=== PATIENT | female | born 2000 | race African-American/Black ===

== ENCOUNTER 2022-02-21 12:58 | Inpatient (IN) | payer OTHER, MEDICAID ==
[2022-02-21] MEDS ORDERED: LIDOCAINE (2%) 20 MG/1 ML VIAL 20 ML MDV INFILTRATI ONE (17:36)
[2022-02-21] MEDS ORDERED: OXYTOCIN 10 UNIT/1 ML INJ IM PRN (17:36)
[2022-02-21] MEDS ORDERED: ePHEDrine SULFATE 50 MG/1 ML INJ IV PRN (17:36)
[2022-02-21] MEDS ORDERED: CARBOPROST TROMETHAMINE 250 MCG/1 ML INJ IM PRN (17:36)
[2022-02-21] MEDS ORDERED: TERBUTALINE 1 MG/1 ML INJ SUB-Q PRN (17:36)
[2022-02-21] MEDS ORDERED: LOPERAMIDE 2 MG CAP PO PRN (17:36)
[2022-02-21] MEDS ORDERED: MINERAL OIL 30 ML ORAL LIQD PO PRN (17:36)
[2022-02-21] MEDS ORDERED: miSOPROStol 200 MCG TAB PR PRN (17:36)
[2022-02-21] MEDS ORDERED: hydrALAZINE 20 MG/1 ML INJ IV PRN (17:39)
[2022-02-21] MEDS ORDERED: DINOPROSTONE 10 MG VAG SUPP VG ONE (17:39)
[2022-02-21] MEDS ORDERED: AMPICILLIN/NS 2 GM/100 ML 2 GM/100 ML BAG IV ONE ×2 (17:39→21:27)
[2022-02-21] MEDS ORDERED: ONDANSETRON 4 MG/2 ML INJ IV PRN (17:39)
[2022-02-21] MEDS ORDERED: NALOXONE 0.4 MG/1 ML INJ IV PRN (17:39)
[2022-02-21] MEDS ORDERED: ACETAMINOPHEN 325 MG TAB PO PRN (17:39)
[2022-02-21] MEDS ORDERED: CALCIUM GLUCONATE 1000 MG/10 ML INJ IV PRN (17:39)
[2022-02-21] MEDS ORDERED: LACTATED RINGERS 1,000 ML IV SCH ×2 (17:45)
[2022-02-21] MEDS ORDERED: OXYTOCIN DRIP 30 UNITS/500 ML BAG IV SCH ×2 (18:00)
[2022-02-21 19:37] LABS: Hematocrit 35.9 % (30.3-42.9); Hemoglobin 12.2 gm/dl (10.1-14.3); Mean Corpuscular HGB Conc 34 % (30-34); Mean Corpuscular Volume 88 fl (79-97); Platelet Count 244 K/mm3 (140-440); Red Blood Count 4.06 M/mm3 (3.65-5.03); Red Cell Distribution Width 14.2 % (13.2-15.2)
[2022-02-21 19:59] LABS: Alanine Aminotransferase 10 units/L (7-56)
[2022-02-21 20:07] LABS: Hepatitis C Virus Antibody Non-Reactive (NonReactive)
--- NOTE | 2022-02-21 21:08 | History and Physical Report ---
History of Present Illness Date of admission: 02/21/22 17:37 Chief complaint: contractions History of present illness: Pt is a 21 year old female primigravida ANDREEA 03/07/22 at 38w0d who intially presented complaining of contractions. Her cervix was found to be closed, but multiple blood pressures were noted to be elevated. Bedside ultrasound confirms a term , and reveals oligohydramnios with MADELINE 4.2 cm. She reports care at [facility] until insurance lapse, but records are unavailable for review. She reports being GBS positive. Past History Past Medical History: no pertinent history Past Surgical History: appendectomy Social history: no significant social history, - Obstetrical History Expected Date of Delivery: 03/07/22 Actual Gestation: 38 Week(s) 0 Day(s) : 1 Medications and Allergies Allergies Allergy/AdvReac Type Severity Reaction Status Date / Time No Known Allergies Allergy Unverified 01/22/15 05:40 Home Medications Medication Instructions Recorded Confirmed Last Taken Type Ondansetron [Zofran Odt] 4 mg PO Q4H PRN #10 tab.rapdis 01/22/15 Unknown Rx Active Meds: Active Medications Acetaminophen (Acetaminophen 325 Mg Tab) 650 mg PO Q4H PRN PRN Reason: Pain, Mild (1-3) Butorphanol Tartrate (Butorphanol 2 Mg/1 Ml Inj) 1 mg IV Q2H PRN PRN Reason: Pain, Moderate(4-6) LABOR PAIN Calcium Gluconate (Calcium Gluconate 1000 Mg/10 Ml Inj) 1,000 mg IV ONCE PRN PRN Reason: Hypermagnesmia Carboprost Tromethamine (Carboprost Tromethamine 250 Mcg/1 Ml Inj) 250 mcg IM ONCE PRN PRN Reason: Uterine Bleeding Ephedrine Sulfate (Ephedrine Sulfate 50 Mg/1 Ml Inj) 10 mg IV Q2M PRN PRN Reason: Hypotension Fentanyl (Fentanyl 100 Mcg/2 Ml Inj) 100 mcg IV Q2H PRN PRN Reason: Pain,Severe (7-10) LABOR PAIN Hydralazine HCl (Hydralazine 20 Mg/1 Ml Inj) 5 mg IV Q30MIN PRN PRN Reason: Hypertension Lactated Ringer's (Lactated Ringers) 1,000 mls @ 125 mls/hr IV DIRECT MARY ANN Oxytocin/Sodium Chloride (Pitocin/Ns 30 Unit/500ml) 30 units in 500 mls @ 2 mls/hr IV TITR MARY ANN; Protocol Lactated Ringer's (Lactated Ringers) 1,000 mls @ 125 mls/hr IV DIRECT MARY ANN Oxytocin/Sodium Chloride (Pitocin/Ns 30 Unit/500ml) 30 units in 500 mls @ 40 mls/hr IV TITR MARY ANN; Protocol Ampicillin Sodium (Ampicillin/Ns 1 Gm/50 Ml) 1 gm in 50 mls @ 100 mls/hr IV Q4H MARY ANN; Protocol Labetalol HCl (Labetalol 20 Mg/4 Ml Inj) 20 mg IV ONCE PRN PRN Reason: Hypertension Loperamide HCl (Loperamide 2 Mg Cap) 2 mg PO ONCE PRN PRN Reason: give with Hemabate Mineral Oil (Mineral Oil 30 Ml Oral Liqd) 30 ml PO QHS PRN PRN Reason: Constipation Misoprostol (Misoprostol 200 Mcg Tab) 800 mcg MS ONCE PRN PRN Reason: Uterine Bleeding Naloxone HCl (Naloxone 0.4 Mg/1 Ml Inj) 0.1 mg IV Q2MIN PRN PRN Reason: Res Rate </= 8 or 02 SAT < 92% Ondansetron HCl (Ondansetron 4 Mg/2 Ml Inj) 4 mg IV Q8H PRN PRN Reason: Nausea And Vomiting Oxytocin (Oxytocin 10 Unit/1 Ml Inj) 10 unit IM ONCE PRN PRN Reason: Uterine Bleeding Terbutaline Sulfate (Terbutaline 1 Mg/1 Ml Inj) 0.25 mg SUB-Q ONCE PRN PRN Reason: Hyperstimulation/Hypertonicity Review of Systems All systems: negative - Vital Signs Vital signs: Vital Signs Temp Pulse Resp BP Pulse Ox 98.3 F 103 H 18 147/99 98 02/21/22 13:22 02/21/22 13:22 02/21/22 13:22 02/21/22 13:22 02/21/22 13:22 Temp Pulse Resp BP Pulse Ox 98.9 F 103 H 18 142/95 94 02/21/22 19:59 02/21/22 21:02 02/21/22 13:22 02/21/22 21:01 02/21/22 21:02 - Physical Exam Breasts: Positive: deferred Abdomen: Positive: soft (gravid ) Uterus: Positive: enlarged (gravid ) - Obstetrical FHR: auscultation normal Uterine Contraction Monitor Mode: External Cervical Dilatation: 0 (per RN ) Uterine Contraction Pattern: Irregular Uterine Tone Measurement Phase: Resting Uterine Contraction Intensity: Mild Results Result Diagrams: 02/21/22 19:26 02/21/22 19:26 Abnormal lab results 02/21/22 Range/Units 19:26 Creatinine 0.5 L (0.6-1.2) mg/dL All other labs normal. Ultrasound: image reviewed Assessment and Plan A: IUP at 38w0d Gestational Hypertension Oligohydramnios Unfavorable Cervix Limited Care GBS positive per pt P: Admit to labor and delivery panel, PIH panel Cervidil for cervical ripening Closely monitor maternal and status
[2022-02-22] MEDS: fentaNYL 100 MCG/2 ML INJ IV PRN ×2 (02:39→09:31)
[2022-02-22] MEDS: BUTORPHANOL 2 MG/1 ML INJ IV PRN ×2 (07:33→08:55)
--- NOTE | 2022-02-22 07:50 | Ultrasound Report ---
ULTRASOUND OBSTETRIC COMPLETE INDICATION / CLINICAL INFORMATION: elevated bp. Clinical Gestational Age (GA) in weeks.days: 37.6 TECHNIQUE: Transabdominal. COMPARISON: None available. FINDINGS: NUMBER: Single PRESENTATION: cephalic PLACENTA: anterior and free of the os. MATERNAL ADNEXA: No significant abnormality. AMNIOTIC FLUID VOLUME: decreased AMNIOTIC FLUID INDEX (MADELINE) in cm (if measured): 4.2 ANATOMY: anatomical survey was not performed. MEASUREMENTS: - Biparietal Diameter = 9.3 cm = 37.6 weeks.days - Head Circumference = 33.2 cm = 37.6 weeks.days - Abdominal Circumference = 33.7 cm = 37.4 weeks.days - Femur Length = 7.5 cm = 38.2 weeks.days - Estimated Weight (in grams, if calculated): 3325 - Heart Rate (beats per minute): 161 ADDITIONAL FINDINGS: None. PERCENTILE ESTIMATED WEIGHT (if calculated): 59 AVERAGE ULTRASOUND AGE (AUA) in weeks.days = 38.0 IMPRESSION: 1. Single intrauterine with AUA of 38.0 weeks.days 2. Mild oligohydramnios with MADELINE measuring 4.2 cm. Signer Name: Golden Chirinos Jr, MD Signed: 02/22/2022 7:45 AM Workstation Name: [id number]
--- NOTE | 2022-02-22 08:34 | Progress Note ---
Assessment and Plan - Patient Problems (1) Gestational hypertension Current Visit: Yes Status: Acute Plan to address problem: Continue induction as planned (2) Oligohydramnios Current Visit: Yes Status: Acute Subjective - Subjective Date of service: 02/22/22 Interval history: 21-year-old at 38+1 weeks who was admitted for elevated blood pressures and findings of oligohydramnios. The patient is currently receiving low-dose Pitocin and and her cervix is 1 cm. Patient reports: no new complaints Objective - Vital Signs Vital Signs: Vital Signs - 12hr 02/21/22 02/21/22 02/21/22 20:35 20:40 20:41 Temperature Pulse Rate 80 74 75 Blood Pressure 158/97 Blood Pressure [Right] O2 Sat by Pulse 97 97 Oximetry O2 Sat by Pulse Oximetry [ Bilateral Throughout] 02/21/22 02/21/22 02/21/22 20:45 20:52 20:57 Temperature Pulse Rate 85 99 H 85 Blood Pressure Blood Pressure [Right] O2 Sat by Pulse 97 96 98 Oximetry O2 Sat by Pulse Oximetry [ Bilateral Throughout] 02/21/22 02/21/22 02/21/22 21:01 21:02 21:07 Temperature Pulse Rate 75 103 H 73 Blood Pressure 142/95 Blood Pressure [Right] O2 Sat by Pulse 94 97 Oximetry O2 Sat by Pulse Oximetry [ Bilateral Throughout] 02/21/22 02/21/22 02/21/22 21:12 21:17 21:21 Temperature Pulse Rate 74 84 71 Blood Pressure 135/93 Blood Pressure [Right] O2 Sat by Pulse 96 98 Oximetry O2 Sat by Pulse Oximetry [ Bilateral Throughout] 02/21/22 02/21/22 02/21/22 21:22 21:27 21:32 Temperature Pulse Rate 83 91 H 92 H Blood Pressure Blood Pressure [Right] O2 Sat by Pulse 97 97 98 Oximetry O2 Sat by Pulse Oximetry [ Bilateral Throughout] 02/21/22 02/21/22 02/21/22 21:37 21:41 21:42 Temperature Pulse Rate 95 H 81 84 Blood Pressure 141/82 Blood Pressure [Right] O2 Sat by Pulse 98 98 Oximetry O2 Sat by Pulse Oximetry [ Bilateral Throughout] 02/21/22 02/21/22 02/21/22 21:47 21:52 21:57 Temperature Pulse Rate 84 86 78 Blood Pressure Blood Pressure [Right] O2 Sat by Pulse 98 97 98 Oximetry O2 Sat by Pulse Oximetry [ Bilateral Throughout] 02/21/22 02/21/22 02/21/22 22:01 22:02 22:07 Temperature Pulse Rate 78 79 79 Blood Pressure 133/87 Blood Pressure [Right] O2 Sat by Pulse 97 97 Oximetry O2 Sat by Pulse Oximetry [ Bilateral Throughout] 02/21/22 02/21/22 02/21/22 22:12 22:17 22:21 Temperature Pulse Rate 79 82 77 Blood Pressure 135/88 Blood Pressure [Right] O2 Sat by Pulse 97 97 Oximetry O2 Sat by Pulse Oximetry [ Bilateral Throughout] 02/21/22 02/21/22 02/21/22 22:22 22:34 22:39 Temperature Pulse Rate 80 85 88 Blood Pressure Blood Pressure [Right] O2 Sat by Pulse 97 98 96 Oximetry O2 Sat by Pulse Oximetry [ Bilateral Throughout] 02/21/22 02/21/22 02/21/22 22:42 22:44 22:49 Temperature Pulse Rate 92 H 80 75 Blood Pressure 160/95 147/90 Blood Pressure [Right] O2 Sat by Pulse 98 98 Oximetry O2 Sat by Pulse Oximetry [ Bilateral Throughout] 02/21/22 02/21/22 02/21/22 22:54 22:59 23:01 Temperature Pulse Rate 76 77 78 Blood Pressure 136/87 Blood Pressure [Right] O2 Sat by Pulse 98 97 Oximetry O2 Sat by Pulse Oximetry [ Bilateral Throughout] 02/21/22 02/21/22 02/21/22 23:04 23:09 23:14 Temperature Pulse Rate 78 78 79 Blood Pressure Blood Pressure [Right] O2 Sat by Pulse 98 97 97 Oximetry O2 Sat by Pulse Oximetry [ Bilateral Throughout] 02/21/22 02/21/22 02/21/22 23:19 23:21 23:24 Temperature Pulse Rate 79 71 86 Blood Pressure 142/95 Blood Pressure [Right] O2 Sat by Pulse 98 97 Oximetry O2 Sat by Pulse Oximetry [ Bilateral Throughout] 02/21/22 02/21/22 02/21/22 23:29 23:34 23:39 Temperature Pulse Rate 76 78 89 Blood Pressure Blood Pressure [Right] O2 Sat by Pulse 97 97 97 Oximetry O2 Sat by Pulse Oximetry [ Bilateral Throughout] 08/14/22 08/14/22 08/14/22 23:42 23:44 23:49 Temperature Pulse Rate 75 82 83 Blood Pressure 145/94 Blood Pressure [Right] O2 Sat by Pulse 98 98 Oximetry O2 Sat by Pulse Oximetry [ Bilateral Throughout] 02/21/22 02/21/22 02/22/22 23:54 23:59 00:02 Temperature Pulse Rate 93 H 83 82 Blood Pressure 165/102 Blood Pressure [Right] O2 Sat by Pulse 97 97 Oximetry O2 Sat by Pulse Oximetry [ Bilateral Throughout] 02/22/22 02/22/22 02/22/22 00:04 00:06 00:08 Temperature 98.7 F Pulse Rate 84 77 80 Blood Pressure 153/90 Blood Pressure 153/90 [Right] O2 Sat by Pulse 98 Oximetry O2 Sat by Pulse Oximetry [ Bilateral Throughout] 02/22/22 02/22/22 02/22/22 00:09 00:14 00:19 Temperature Pulse Rate 82 88 89 Blood Pressure Blood Pressure [Right] O2 Sat by Pulse 96 98 98 Oximetry O2 Sat by Pulse Oximetry [ Bilateral Throughout] 02/22/22 02/22/22 02/22/22 00:22 00:24 00:29 Temperature Pulse Rate 77 81 91 H Blood Pressure 156/94 Blood Pressure [Right] O2 Sat by Pulse 98 98 Oximetry O2 Sat by Pulse Oximetry [ Bilateral Throughout] 02/22/22 02/22/22 02/22/22 00:34 00:39 00:41 Temperature Pulse Rate 88 85 78 Blood Pressure 153/92 Blood Pressure [Right] O2 Sat by Pulse 98 97 Oximetry O2 Sat by Pulse Oximetry [ Bilateral Throughout] 02/22/22 02/22/22 02/22/22 00:50 00:55 01:00 Temperature Pulse Rate 90 85 89 Blood Pressure Blood Pressure [Right] O2 Sat by Pulse 98 97 97 Oximetry O2 Sat by Pulse Oximetry [ Bilateral Throughout] 02/22/22 02/22/22 02/22/22 01:02 01:05 01:10 Temperature Pulse Rate 75 79 87 Blood Pressure 142/81 Blood Pressure [Right] O2 Sat by Pulse 98 98 Oximetry O2 Sat by Pulse Oximetry [ Bilateral Throughout] 02/22/22 02/22/22 02/22/22 01:15 01:20 01:21 Temperature Pulse Rate 82 85 80 Blood Pressure 166/98 Blood Pressure [Right] O2 Sat by Pulse 98 98 Oximetry O2 Sat by Pulse Oximetry [ Bilateral Throughout] 02/22/22 02/22/22 02/22/22 01:25 01:30 01:37 Temperature Pulse Rate 80 74 84 Blood Pressure Blood Pressure [Right] O2 Sat by Pulse 98 97 97 Oximetry O2 Sat by Pulse Oximetry [ Bilateral Throughout] 02/22/22 02/22/22 02/22/22 01:42 01:47 01:52 Temperature Pulse Rate 87 83 79 Blood Pressure 157/102 Blood Pressure [Right] O2 Sat by Pulse 98 98 98 Oximetry O2 Sat by Pulse Oximetry [ Bilateral Throughout] 02/22/22 02/22/22 02/22/22 01:59 02:01 02:04 Temperature Pulse Rate 57 L 84 77 Blood Pressure 163/97 Blood Pressure [Right] O2 Sat by Pulse 98 97 Oximetry O2 Sat by Pulse Oximetry [ Bilateral Throughout] 02/22/22 02/22/22 02/22/22 02:09 02:15 02:19 Temperature Pulse Rate 83 83 71 Blood Pressure 153/94 Blood Pressure [Right] O2 Sat by Pulse 98 97 Oximetry O2 Sat by Pulse Oximetry [ Bilateral Throughout] 02/22/22 02/22/22 02/22/22 02:20 02:21 02:25 Temperature Pulse Rate 72 77 74 Blood Pressure 143/90 Blood Pressure [Right] O2 Sat by Pulse 98 97 Oximetry O2 Sat by Pulse Oximetry [ Bilateral Throughout] 02/22/22 02/22/22 02/22/22 02:35 02:40 02:45 Temperature Pulse Rate 82 81 90 Blood Pressure Blood Pressure [Right] O2 Sat by Pulse 98 98 96 Oximetry O2 Sat by Pulse Oximetry [ Bilateral Throughout] 02/22/22 02/22/22 02/22/22 02:46 02:50 02:55 Temperature Pulse Rate 77 78 82 Blood Pressure Blood Pressure [Right] O2 Sat by Pulse 94 96 96 Oximetry O2 Sat by Pulse Oximetry [ Bilateral Throughout] 02/22/22 02/22/22 02/22/22 03:00 03:02 03:05 Temperature Pulse Rate 80 79 82 Blood Pressure 151/90 Blood Pressure [Right] O2 Sat by Pulse 96 96 Oximetry O2 Sat by Pulse Oximetry [ Bilateral Throughout] 02/22/22 02/22/22 02/22/22 03:10 03:15 03:20 Temperature Pulse Rate 77 75 81 Blood Pressure Blood Pressure [Right] O2 Sat by Pulse 96 97 98 Oximetry O2 Sat by Pulse Oximetry [ Bilateral Throughout] 02/22/22 02/22/22 02/22/22 03:21 03:25 03:36 Temperature Pulse Rate 86 90 109 H Blood Pressure 159/99 Blood Pressure [Right] O2 Sat by Pulse 97 97 Oximetry O2 Sat by Pulse Oximetry [ Bilateral Throughout] 02/22/22 02/22/22 02/22/22 03:41 03:42 03:46 Temperature Pulse Rate 76 76 72 Blood Pressure 163/102 Blood Pressure [Right] O2 Sat by Pulse 97 97 Oximetry O2 Sat by Pulse Oximetry [ Bilateral Throughout] 02/22/22 02/22/22 02/22/22 03:51 03:56 04:01 Temperature Pulse Rate 74 75 76 Blood Pressure 141/95 Blood Pressure [Right] O2 Sat by Pulse 97 97 97 Oximetry O2 Sat by Pulse Oximetry [ Bilateral Throughout] 02/22/22 02/22/22 02/22/22 04:06 04:11 04:16 Temperature Pulse Rate 76 84 76 Blood Pressure Blood Pressure [Right] O2 Sat by Pulse 97 97 97 Oximetry O2 Sat by Pulse Oximetry [ Bilateral Throughout] 02/22/22 02/22/22 02/22/22 04:21 04:26 04:31 Temperature Pulse Rate 90 85 78 Blood Pressure 139/81 Blood Pressure [Right] O2 Sat by Pulse 97 97 97 Oximetry O2 Sat by Pulse Oximetry [ Bilateral Throughout] 02/22/22 02/22/22 02/22/22 04:36 04:41 04:42 Temperature Pulse Rate 77 81 79 Blood Pressure 157/83 Blood Pressure [Right] O2 Sat by Pulse 97 98 Oximetry O2 Sat by Pulse Oximetry [ Bilateral Throughout] 02/22/22 02/22/22 02/22/22 04:50 04:55 05:00 Temperature Pulse Rate 106 H 76 75 Blood Pressure Blood Pressure [Right] O2 Sat by Pulse 98 97 98 Oximetry O2 Sat by Pulse Oximetry [ Bilateral Throughout] 02/22/22 02/22/22 02/22/22 05:01 05:05 05:10 Temperature Pulse Rate 80 83 73 Blood Pressure 143/82 Blood Pressure [Right] O2 Sat by Pulse 97 97 Oximetry O2 Sat by Pulse Oximetry [ Bilateral Throughout] 02/22/22 02/22/22 02/22/22 05:15 05:20 05:21 Temperature Pulse Rate 69 69 75 Blood Pressure 139/81 Blood Pressure [Right] O2 Sat by Pulse 97 97 Oximetry O2 Sat by Pulse Oximetry [ Bilateral Throughout] 02/22/22 02/22/22 02/22/22 05:25 05:30 05:35 Temperature Pulse Rate 84 70 72 Blood Pressure Blood Pressure [Right] O2 Sat by Pulse 97 97 97 Oximetry O2 Sat by Pulse Oximetry [ Bilateral Throughout] 02/22/22 02/22/22 02/22/22 05:40 05:41 05:45 Temperature Pulse Rate 66 77 71 Blood Pressure 143/86 Blood Pressure [Right] O2 Sat by Pulse 96 96 Oximetry O2 Sat by Pulse Oximetry [ Bilateral Throughout] 02/22/22 02/22/22 02/22/22 05:50 05:55 06:00 Temperature Pulse Rate 72 80 69 Blood Pressure Blood Pressure [Right] O2 Sat by Pulse 96 97 96 Oximetry O2 Sat by Pulse Oximetry [ Bilateral Throughout] 02/22/22 02/22/22 02/22/22 06:02 06:05 06:10 Temperature Pulse Rate 74 70 71 Blood Pressure 155/92 Blood Pressure [Right] O2 Sat by Pulse 96 96 Oximetry O2 Sat by Pulse Oximetry [ Bilateral Throughout] 02/22/22 02/22/22 02/22/22 06:15 06:16 06:20 Temperature 98.3 F Pulse Rate 79 79 82 Blood Pressure 152/95 Blood Pressure 152/95 [Right] O2 Sat by Pulse 96 97 Oximetry O2 Sat by Pulse Oximetry [ Bilateral Throughout] 02/22/22 02/22/22 02/22/22 06:22 06:25 06:30 Temperature Pulse Rate 71 69 71 Blood Pressure 153/84 Blood Pressure [Right] O2 Sat by Pulse 95 96 Oximetry O2 Sat by Pulse Oximetry [ Bilateral Throughout] 02/22/22 02/22/22 02/22/22 06:35 06:40 06:41 Temperature Pulse Rate 71 71 72 Blood Pressure 152/84 Blood Pressure [Right] O2 Sat by Pulse 96 95 Oximetry O2 Sat by Pulse Oximetry [ Bilateral Throughout] 02/22/22 02/22/22 02/22/22 06:48 06:53 06:58 Temperature Pulse Rate 94 H 82 84 Blood Pressure Blood Pressure [Right] O2 Sat by Pulse 98 97 97 Oximetry O2 Sat by Pulse Oximetry [ Bilateral Throughout] 02/22/22 02/22/22 02/22/22 07:01 07:03 07:06 Temperature Pulse Rate 73 73 75 Blood Pressure 162/88 145/83 Blood Pressure [Right] O2 Sat by Pulse 97 Oximetry O2 Sat by Pulse Oximetry [ Bilateral Throughout] 02/22/22 02/22/22 02/22/22 07:08 07:10 07:13 Temperature Pulse Rate 84 81 Blood Pressure Blood Pressure [Right] O2 Sat by Pulse 97 97 Oximetry O2 Sat by Pulse 97 Oximetry [ Bilateral Throughout] 02/22/22 02/22/22 02/22/22 07:18 07:21 07:27 Temperature Pulse Rate 94 H 83 87 Blood Pressure 153/88 Blood Pressure [Right] O2 Sat by Pulse 98 98 Oximetry O2 Sat by Pulse Oximetry [ Bilateral Throughout] 02/22/22 02/22/22 02/22/22 07:32 07:37 07:41 Temperature Pulse Rate 101 H 81 75 Blood Pressure 142/72 Blood Pressure [Right] O2 Sat by Pulse 98 96 Oximetry O2 Sat by Pulse Oximetry [ Bilateral Throughout] 02/22/22 02/22/22 02/22/22 07:42 07:47 07:52 Temperature Pulse Rate 86 86 78 Blood Pressure Blood Pressure [Right] O2 Sat by Pulse 96 96 96 Oximetry O2 Sat by Pulse Oximetry [ Bilateral Throughout] 02/22/22 02/22/22 02/22/22 07:57 08:01 08:02 Temperature Pulse Rate 84 82 81 Blood Pressure 134/76 Blood Pressure [Right] O2 Sat by Pulse 96 96 Oximetry O2 Sat by Pulse Oximetry [ Bilateral Throughout] 02/22/22 02/22/22 02/22/22 08:07 08:12 08:17 Temperature Pulse Rate 80 83 81 Blood Pressure Blood Pressure [Right] O2 Sat by Pulse 96 96 96 Oximetry O2 Sat by Pulse Oximetry [ Bilateral Throughout] 02/22/22 02/22/22 02/22/22 08:21 08:22 08:31 Temperature Pulse Rate 85 85 86 Blood Pressure 141/79 Blood Pressure [Right] O2 Sat by Pulse 97 96 Oximetry O2 Sat by Pulse Oximetry [ Bilateral Throughout] - Labs Labs: Abnormal Labs 02/21/22 19:26 Creatinine 0.5 L Laboratory Results - last 24 hr 02/21/22 02/21/22 02/21/22 19:26 19:26 19:26 WBC RBC Hgb Hct MCV MCH MCHC RDW Plt Count Creatinine Estimated GFR AST ALT Syphilis IgG/IgM Ab Hep Bs Antigen Non-reactive Hepatitis C Antibody Non-reactive HIV 1&2 Antibody Rapid HIV P24 Antigen Rubella IgG Antibody Immune Blood Type O POSITIVE Antibody Screen Negative 02/21/22 02/21/22 02/21/22 19:26 19:26 19:26 WBC 10.2 RBC 4.06 Hgb 12.2 Hct 35.9 MCV 88 MCH 30 MCHC 34 RDW 14.2 Plt Count 244 Creatinine 0.5 L Estimated GFR > 60 AST 21 ALT 10 Syphilis IgG/IgM Ab Nonreactive Hep Bs Antigen Hepatitis C Antibody HIV 1&2 Antibody Rapid HIV P24 Antigen Rubella IgG Antibody Blood Type Antibody Screen 02/21/22 19:26 WBC RBC Hgb Hct MCV MCH MCHC RDW Plt Count Creatinine Estimated GFR AST ALT Syphilis IgG/IgM Ab Hep Bs Antigen Hepatitis C Antibody HIV 1&2 Antibody Rapid Non react HIV P24 Antigen Non react Rubella IgG Antibody Blood Type Antibody Screen
[2022-02-22] MEDS: AMPICILLIN/NS 1 GM/50 ML 1 GM/50 ML BAG IV SCH ×2 (08:57→13:35)
[2022-02-22] MEDS ORDERED: NALOXONE 0.4 MG/1 ML INJ IV PRN (11:20)
[2022-02-22] MEDS ORDERED: fentaNYL-BUPIV 2 MCG/ML-0.125% 200 MCG/100 ML BAG EPIDURAL SCH (11:20)
[2022-02-22] MEDS ORDERED: ePHEDrine SULFATE 50 MG/1 ML INJ IV PRN (11:20)
--- NOTE | 2022-02-22 14:01 | Anesthesia Day of Surgery ---
Anesthesia Day of Surgery - Day of Surgery Patient Examined: Yes Patient H&P Reviewed: Yes Patient is NPO: Yes Beta Blockers: No Cardiac Clearance: No Pulmonary Clearance: No Tu's Test: N/A
--- NOTE | 2022-02-22 14:01 | Anesthesia Consultation ---
Anesthesia Consult and Med Hx Date of service: 02/22/22 - Airway Anesthetic Teeth Evaluation: Good ROM Head & Neck: Adequate Mental/Hyoid Distance: Adequate Mallampati Class: Class II Intubation Access Assessment: Probably Good - Pulmonary Exam CTA: Yes - Cardiac Exam Cardiac Exam: RRR - Pre-Operative Health Status ASA Pre-Surgery Classification: ASA2 Proposed Anesthetic Plan: Epidural - Pulmonary Hx Smoking: No Hx Asthma: No Hx Respiratory Symptoms: No SOB: No COPD: No Home Oxygen Therapy: No Hx Pneumonia: No Hx Sleep Apnea: No - Cardiovascular System Hx Hypertension: No Hx Coronary Artery Disease: No Hx Heart Attack/AMI: No Hx Angina: No Hx Percutaneous Transluminal Coronary Angioplasty (PTCA): No Hx Cardia Arrhythmia: No Hx Pacemaker: No Hx Internal Defibrillator: No Hx Valvular Heart Disease: No Hx Heart Murmur: No Hx Peripheral Vascular Disease: No - Central Nervous System Hx Neuromuscular Disorder: No Hx Seizures: No CVA: No Hx Back Pain: No Hx Psychiatric Problems: No - Gastrointestinal Hx Ulcer: No Hx Gastroesophageal Reflux Disease: No - Endocrine Hx Renal Disease: No Hx End Stage Renal Disease: No Hx Cirrhosis: No Hx Liver Disease: No Hx Insulin Dependent Diabetes: No Hx Non-Insulin Dependent Diabetes: No Hx Thyroid Disease: No Hx Hypothyroidism: No Hx Hyperthyroidism: No - Hematic Hx Anemia: No Hx Sickle Cell Disease: No - Other Systems Hx Alcohol Use: No Hx Substance Use: No Hx Cancer: No Hx Obesity: No
--- NOTE | 2022-02-22 14:02 | Progress Note ---
Labor Epidural - Labor Epidural Start Time: 11:02 Stop Time: 11:07 Performed by:: RAF HAQUE Procedure: Epidural Requested for Labor Pain. H&P and PT Chart reviewed and consent obtained. Time out performed and the procedure was explained, all questions answered. Patient was placed in a sitting position with monitors applied. The PTs back was prepped and draped in usual sterile fashion. The Skin was localized with 3 mL of 1% lidocaine at L3-L4. A 17-gauge Touhy epidural needle was advanced to NICKOLAS with saline at 7 cm and no blood/CSF was noted via epidural needle. Epidural catheter was advanced to 12 cm. There was negative aspiration for blood and CSF in the catheter and negative response to a test dose of 3 ml 1.5% lidocaine w/ Epi and a sterile dressing was applied Patient tolerated the procedure well and there were no immediate complications noted.
[2022-02-22 14:31] LABS: Uric Acid 7.3 mg/dL (3.5-7.6)
--- NOTE | 2022-02-22 15:00 | Procedure Note ---
OB Delivery Note - Delivery Date of Delivery: 02/22/22 (8344) Surgeon: SARAI RODRIGUEZ (CNM) Estimated blood loss: other (400 cc) - Vaginal Delivery presentation: vertex Delivery position: OA (KATHY) Intrapartum events: none Delivery induction: none Delivery augmentation: rupture of membranes Delivery monitor: external FHT, external uterine Route of delivery: Delivery placenta: spontaneous Delivery cord: nuchal cord (x 1, reduced at perineum), 3 umbilical vessels Delivery laceration: none, other (left periurethral, no repair required) Anesthesia: epidural Delivery comments: of viable female, crying placed directly to maternal abdomen. Cord double clamped, cut by FOB after cessation of pulsation. Placenta spontaneously delivered, disposed per hospital policy. Uterus firm @ U-3. Perineum with left hubert-urethral laceration, no repair required. Mother and baby safe, stable and left in care of RN. - A at 1 minute: 8 at 5 minutes: 9 Infant Gender: Female (Weight: 2650 gms (5lbs 13ozs) 19 inches)
[2022-02-22] MEDS ORDERED: LANOLIN/ZINC/DIMETHICONE (LANSINOH) 7 GM TP PRN (15:30)
[2022-02-22] MEDS ORDERED: diphenhydrAMINE 25 MG CAP PO PRN (15:30)
[2022-02-22] MEDS ORDERED: oxyCODONE /ACETAMINOPHEN 5-325MG TAB PO PRN (15:30)
[2022-02-22] MEDS ORDERED: PROMETHAZINE 25 MG TAB PO PRN (15:30)
[2022-02-22] MEDS ORDERED: WITCH HAZEL/ GLYCERIN PAD TP PRN (15:30)
[2022-02-22] MEDS: IBUPROFEN 800 MG TAB PO SCH (21:12)
[2022-02-22] MEDS ORDERED: MAGNESIUM HYDROXIDE (MOM) ORAL LIQD UDC PO PRN (22:00)
[2022-02-23 03:25] LABS: Hematocrit 28.9 % (30.3-42.9); Hemoglobin 9.6 gm/dl (10.1-14.3)
[2022-02-23] MEDS: IBUPROFEN 800 MG TAB PO SCH ×4 (04:15→23:50)
--- NOTE | 2022-02-23 08:51 | Progress Note ---
Assessment and Plan A: PPD#1 s/p at term Acute anemia d/t blood loss P: Continue with routine care with discharge anticipated tomorrow morning. Subjective - Subjective Date of service: 02/23/22 Principal diagnosis: PPD#1 s/p at term Interval history: Patient is feeling well and without complaints. She reports decreasing lochia, adequate pain control and reports no issues with ambulation nor voiding. Patient reports: appetite normal, voiding normally, pain well controlled, ambulating normally [place]: doing well Objective - Vital Signs Latest vital signs: Vital Signs Temp Pulse Resp BP BP Pulse Ox Pulse Ox 02/23/22 08:42 98 F 72 20 123/81 97 02/23/22 08:00 98 02/23/22 04:09 97.8 F 79 18 129/85 94 02/23/22 00:25 98.0 F 85 18 127/81 95 02/22/22 20:11 98.6 F 18 134/94 02/22/22 19:30 98 02/22/22 18:27 98.7 F 94 H 18 139/87 97 02/22/22 18:16 97 02/22/22 16:41 96 H 97 02/22/22 16:39 96 H 139/83 02/22/22 16:36 105 H 97 02/22/22 16:34 98 H 137/69 02/22/22 16:31 101 H 97 02/22/22 16:29 96 H 141/69 02/22/22 16:26 98 H 97 02/22/22 16:24 104 H 144/75 02/22/22 16:21 96 H 97 02/22/22 16:19 89 144/80 02/22/22 16:16 94 H 96 02/22/22 16:14 94 H 129/67 94 02/22/22 16:11 92 H 96 02/22/22 16:09 89 135/69 02/22/22 16:06 102 H 97 02/22/22 16:04 92 H 150/84 02/22/22 16:01 97 H 97 02/22/22 15:59 96 H 145/77 02/22/22 15:56 101 H 96 02/22/22 15:54 99 H 147/77 02/22/22 15:51 99 H 97 02/22/22 15:49 101 H 151/82 02/22/22 15:46 103 H 97 02/22/22 15:44 142/78 02/22/22 15:41 98 H 97 02/22/22 15:39 104 H 146/83 02/22/22 15:36 98 H 98 02/22/22 15:34 108 H 146/87 02/22/22 15:31 100 H 98 02/22/22 15:29 95 H 148/85 02/22/22 15:26 95 H 97 02/22/22 15:24 92 H 138/81 02/22/22 15:21 97 H 97 02/22/22 15:19 99 H 124/73 02/22/22 15:16 100 H 97 02/22/22 15:14 96 H 138/78 02/22/22 15:11 105 H 97 02/22/22 15:09 102 H 147/86 02/22/22 15:06 108 H 97 02/22/22 15:04 100 H 148/85 02/22/22 15:01 111 H 98 02/22/22 14:59 105 H 144/86 02/22/22 14:56 109 H 97 02/22/22 14:54 111 H 151/91 02/22/22 14:51 107 H 97 02/22/22 14:49 107 H 147/89 02/22/22 14:46 108 H 97 02/22/22 14:44 108 H 151/103 02/22/22 14:41 115 H 97 02/22/22 14:39 116 H 156/104 02/22/22 14:36 118 H 97 02/22/22 14:35 162 H 161/100 02/22/22 14:31 99 02/22/22 14:29 130 H 155/92 02/22/22 14:26 147 H 150/82 97 02/22/22 14:24 115 H 149/89 02/22/22 14:21 137 H 99 02/22/22 14:19 111 H 140/83 02/22/22 14:16 106 H 97 02/22/22 14:13 109 H 148/83 02/22/22 14:11 136 H 180/100 97 02/22/22 14:06 143 H 97 02/22/22 14:05 102 H 152/84 02/22/22 14:01 111 H 146/78 97 02/22/22 13:59 100 H 150/91 02/22/22 13:56 109 H 97 02/22/22 13:54 91 H 152/89 02/22/22 13:51 95 H 97 02/22/22 13:49 98 H 162/101 02/22/22 13:46 93 H 97 02/22/22 13:45 90 148/91 02/22/22 13:41 103 H 97 02/22/22 13:39 95 H 150/95 02/22/22 13:36 97 H 94 02/22/22 13:34 98 H 157/101 02/22/22 13:31 94 H 96 02/22/22 13:26 87 96 02/22/22 13:21 86 97 02/22/22 13:20 83 159/99 02/22/22 13:16 97 H 97 02/22/22 13:11 94 H 97 02/22/22 13:06 96 H 95 02/22/22 13:04 90 135/91 02/22/22 13:01 87 96 02/22/22 12:56 78 96 02/22/22 12:51 77 96 02/22/22 12:49 82 139/82 02/22/22 12:46 72 96 02/22/22 12:41 77 96 02/22/22 12:36 80 96 02/22/22 12:33 73 133/77 02/22/22 12:31 76 96 02/22/22 12:26 78 96 02/22/22 12:21 79 96 02/22/22 12:16 79 96 02/22/22 12:14 82 138/82 02/22/22 12:11 81 97 02/22/22 12:09 96 H 140/88 02/22/22 12:06 96 H 95 02/22/22 12:04 78 142/86 02/22/22 12:01 79 96 02/22/22 11:59 76 136/83 02/22/22 11:56 88 95 02/22/22 11:53 80 146/93 02/22/22 11:51 82 95 02/22/22 11:49 76 142/93 02/22/22 11:46 75 96 02/22/22 11:44 83 139/84 02/22/22 11:41 80 95 02/22/22 11:40 18 139/84 02/22/22 11:39 81 139/84 02/22/22 11:36 77 96 02/22/22 11:34 77 139/76 02/22/22 11:31 77 95 02/22/22 11:29 77 135/74 02/22/22 11:26 81 96 02/22/22 11:23 81 128/67 02/22/22 11:21 91 H 97 02/22/22 11:18 93 H 146/74 02/22/22 11:16 95 H 97 02/22/22 11:13 96 H 145/100 02/22/22 11:11 100 H 97 02/22/22 11:09 95 H 142/99 02/22/22 11:06 94 H 97 02/22/22 11:05 91 H 155/98 02/22/22 11:01 95 H 98 02/22/22 10:59 93 H 179/100 02/22/22 10:56 85 98 02/22/22 10:54 103 H 165/102 02/22/22 10:51 92 H 98 02/22/22 10:46 86 96 02/22/22 10:41 98 H 143/101 96 02/22/22 10:35 83 96 02/22/22 10:30 87 96 02/22/22 10:25 97 H 97 02/22/22 10:21 82 143/80 02/22/22 10:20 81 97 02/22/22 10:15 79 96 02/22/22 10:10 101 H 98 02/22/22 10:05 87 97 02/22/22 10:01 85 144/77 02/22/22 10:00 90 97 02/22/22 09:55 102 H 97 02/22/22 09:50 91 H 97 02/22/22 09:45 86 97 02/22/22 09:42 84 141/76 02/22/22 09:40 88 97 02/22/22 09:35 89 97 02/22/22 09:30 91 H 97 02/22/22 09:25 81 97 02/22/22 09:22 82 142/79 02/22/22 09:20 86 96 02/22/22 09:15 94 H 97 08/15/22 09:06 94 H 97 02/22/22 09:01 88 148/83 97 02/22/22 08:56 87 97 02/22/22 08:51 87 98 Intake and Output 02/22/22 02/23/22 02/23/22 23:59 07:59 15:59 Intake Total 400 100 320 Output Total 4700 Balance -4300 100 320 Intake: Oral 400 100 320 Output: Urine 4700 Indwelling Catheter 3200 Void 1500 Other: Total, Intake Amount 200 100 320 Total, Output Amount 300 # Voids Void 1 1 1 - Labs Labs: Abnormal lab results 02/21/22 02/23/22 Range/Units 19:26 02:29 Hgb 9.6 L (10.1-14.3) gm/dl Hct 28.9 L D (30.3-42.9) % Lactate Dehydrogenase 279 H (91-180) units/L
--- NOTE | 2022-02-23 08:52 | Discharge Summary ---
Providers - Providers Date of Admission: 02/21/22 17:37 Date of discharge: 02/24/22 Attending physician: PAUL OWENS 02/22/22 14:50 Consult to [facility]er [CONS] Routine Reason For Exam: assistance with , SNS Primary care physician: [employer] REPRESENTATIVE Hospitalization Reason for admission: induction of labor (PIH and Oligo), IUP at term Delivery: Episiotomy: none Laceration: other (Left periurethral (hemostatic)) Other procedures: none complications: none Discharge diagnosis: IUP at term delivered [place] baby: female Hospital course: Pt is a 21 year old female primigravida ANDREEA 03/07/[birth year] at 38w0d who initially presented complaining of contractions. Her cervix was found to be closed, but multiple blood pressures were noted to be elevated. Bedside ultrasound confirms a term , and reveals oligohydramnios with MADELINE 4.2 cm. She reports care at [facility] until insurance lapse, but records are unavailable for review. She reports being GBS positive. She went on to have a of viable female infant. Her course was uncomplicated. Condition at discharge: Good Disposition: 01 HOME / SELF CARE / HOMELESS Plan - Discharge Medications Prescriptions: Ferrous Sulfate [Ferrous Sulfate 324 MG] 325 mg PO BID 30 Days #60 mg Ibuprofen [Motrin] 600 mg PO Q8H PRN #30 tablet PRN Reason: Pain - Provider Discharge Summary Activity: no sex for 6 weeks, no heavy lifting 4 weeks, no strenuous exercise Diet: routine Instructions: routine Additional instructions: [] Smoking cessation referral if applicable(refer to patient education folder for contact #) [] Refer to [facility] Booklet Call your doctor immediately for: * Fever > 100.5 * Heavy vaginal bleeding ( >1 pad per hour) * Severe persistent headache * Shortness of breath * Reddened, hot, painful area to leg or breast * Drainage or odor from incision. * Keep incision clean and dry at all times and follow doctor's instructions regarding bathing/showering - Follow up plan Follow up: DARRIUS MENCHACA DRAPERY CUTTER [Advanced Practice Nurse] - 03/22/22
[2022-02-23] MEDS ORDERED: FERROUS SULFATE 325 MG TAB PO NR (08:56)
[2022-02-23] MEDS: PRENATAL VIT27-FE FUMARATE-FOLIC ACID VIT TAB PO SCH (09:24)
[2022-02-24] MEDS: IBUPROFEN 800 MG TAB PO SCH ×2 (05:22→11:08)
--- NOTE | 2022-02-24 10:00 | Post Anesthesia Evaluation ---
- Post Anesthesia Evaluation Patient Participated: Yes Airway Patent: Yes Stable Respiratory Function: Yes Nausea/Vomiting: No Temp > 96.8F: Yes Pain Manageable: Yes Adequeate Hydration: Yes Anesthesia Complications: No Block Receding Appropriately: Yes Patient on Ventilator: No
[2022-02-24] MEDS: PRENATAL VIT27-FE FUMARATE-FOLIC ACID VIT TAB PO SCH (11:08)
[2022-02-24 14:14] VITALS: BP 136/76
== END 2022-02-24 14:35 | disposition home or self-care (01) | DRG 806 ==
LOC: APU 12:58 → TRG 12:58 → APU 17:37 → LD 22:07 → OB 02-22 17:21
PROVIDERS: ADMIT Obstetrics & Gynecology; ATTEND Obstetrics & Gynecology
PROC: 10E0XZZ Delivery of Products of Conception, External Approach (ICD-10-PCS; principal; 2022-02-22)
PROC: 3E0R3BZ Introduction of Anesthetic Agent into Spinal Canal, Percutaneous Approach (ICD-10-PCS; 2022-02-22)
PROC: 00HU33Z Insertion of Infusion Device into Spinal Canal, Percutaneous Approach (ICD-10-PCS; 2022-02-22)
DX: O13.4 Gestational [pregnancy-induced] hypertension without significant proteinuria, complicating childbirth (principal); D62 Acute posthemorrhagic anemia; Z37.0 Single live birth; O41.03X0 Oligohydramnios, third trimester, not applicable or unspecified; Z20.822 Contact with and (suspected) exposure to COVID-19; Z3A.38 38 weeks gestation of pregnancy; O99.824 Streptococcus B carrier state complicating childbirth; O69.81X0 Labor and delivery complicated by cord around neck, without compression, not applicable or unspecified; O71.82 Other specified trauma to perineum and vulva; O90.81 Anemia of the puerperium
CPT/HCPCS: 36415; 59200; 76805; 76816; 82565; 83615; 84450; 84460; 84550; 85014; 85018; 85027; 86592; 86706; 86762; 86803; 86850; 86900; 86901; 87806; G0378; J3490; J0290; J0360; J0595; J2590; J3010; J7120; U0003